=== PATIENT | male | born 1960 ===

== ENCOUNTER 2017-09-21 06:57 | Observation (INO) | payer BC ==
[2017-09-21 08:37] LABS: BASO # 0.1 K/uL (0.0-0.2); BASO % 1.3 % (0.0-2.0); EOS # 0.3 K/uL (0.0-0.7); EOS % 3.9 % (0.0-4.0); HEMATOCRIT 44.8 % (35.0-51.0); LYMPH # 2.2 K/uL (1.0-4.3); LYMPH % 27.2 % (20.0-40.0); MEAN CORPUSCULAR HEMOGLOBIN 30.4 pg (27.0-31.0); MEAN CORPUSCULAR HGB CONC 33.4 g/dL (33.0-37.0); MEAN PLATELET VOLUME 7.3 fl (7.2-11.7); MONO # 0.8 K/uL (0.0-0.8); MONO % 9.9 % (0.0-10.0); NEUT # 4.6 K/uL (1.8-7.0); NEUT % 57.7 % (50.0-75.0); NRBC % 0.1 % (0.0-0.0); RED CELL DISTRIBUTION WIDTH 14.4 % (11.5-14.5); WHITE BLOOD COUNT 7.9 K/uL (4.8-10.8)
--- NOTE | 2017-09-21 08:42 | RAD ---
PROCEDURE: Right Knee Radiographs. HISTORY: right knee pain COMPARISON: None. FINDINGS: BONES: Normal. No fracture. JOINTS: Tricompartmental narrowing with mild degenerative spurring. Tibial femoral compartment chondrocalcinosis. JOINT EFFUSION: None. OTHER FINDINGS: None. IMPRESSION: No demonstrated fracture or dislocation. Degenerative changes. Chondrocalcinosis.
[2017-09-21 08:44] LABS: PARTIAL THROMBOPLASTIN TIME 35.2 Seconds (25.6-37.1)
[2017-09-21 08:45] LABS: CALCIUM 8.7 mg/dL (8.4-10.2); CARBON DIOXIDE 25 mmol/L (22-30); CHLORIDE 108 mmol/L (98-107); GFR AFRICAN-AMERICAN > 60; GLUCOSE,RANDOM 118 mg/dL (75-110); SODIUM 137 mmol/l (132-148)
[2017-09-21 08:47] LABS: BLOOD UREA NITROGEN 28 mg/dl (9-20)
--- NOTE | 2017-09-21 08:51 | RAD ---
HISTORY: knee pain COMPARISON: No prior. TECHNIQUE: Chest PA and lateral FINDINGS: LUNGS: No active pulmonary disease. PLEURA: No significant pleural effusion identified. No pneumothorax apparent. CARDIOVASCULAR: Normal. OSSEOUS STRUCTURES: Mild degenerative changes. VISUALIZED UPPER ABDOMEN: Normal. OTHER FINDINGS: None. IMPRESSION: No active disease.
[2017-09-21 09:04] LABS: RBC URINE 1 /hpf (0-3); URINE BILIRUBIN NEGATIVE (NEGATIVE); URINE BLOOD NEGATIVE (NEGATIVE); URINE COLOR YELLOW (YELLOW); URINE GLUCOSE (UA) NEG (Normal); URINE KETONE NEGATIVE (NEGATIVE); URINE LEUKOCYTE ESTERASE NEG Leu/uL (Negative); URINE PROTEIN NEGATIVE (NEGATIVE); URINE UROBILINOGEN 0.2-1.0 mg/dL (0.2-1.0); WBC URINE < 1 /hpf (0-5)
--- NOTE | 2017-09-21 09:18 | ED PDOC ---
Lower Extremity Pain/Injury Time Seen by Provider: 09/21/17 07:27 Chief Complaint (Nursing): Lower Extremity Problem/Injury Chief Complaint (Provider): Lower extremity problem History Per: Patient History/Exam Limitations: no limitations Onset/Duration Of Symptoms: Days (x4 months), Worse Since (last few days. ) Current Symptoms Are (Timing): Still Present Pain Scale Rating Of: 4 Additional Complaint(s): Nelida Suazo is a 57 year old male, with a past medical history of arthritis, and peptic ulcer disease, who presents to the emergency department complaining of right knee pain ongoing for 4 months. Patient denies any injury but states that pain has worsen in the last few days. Last night he was unable to walk properly because his right knee locked. Patient states this was associated with severe pain. Patient was seen in the past by Dr. Jimenez for the same problem but much less severe. CT scan was done which revealed severe arthritis. He denies any fever, chills, or other medical complaints. PMD: Dr. Veliz. Past Medical History Reviewed: Historical Data, Nursing Documentation, Vital Signs Vital Signs: Last Vital Signs Temp 97.5 F L 09/21/17 08:47 Pulse 74 09/21/17 08:47 Resp 18 09/21/17 08:47 BP 130/90 09/21/17 09:04 Pulse Ox 96 09/21/17 07:15 - Medical History PMH: Arthritis, Hyperlipidemia - Family History Family History: States: Unknown Family Hx - Social History Current smoker - smoking cessation education provided: No Alcohol: None Drugs: Denies - Home Medications Home Medications: Ambulatory Orders Medication Instructions Recorded Pantoprazole Sodium [Protonix] 40 mg PO DAILY 09/21/17 Rosuvastatin Calcium [Crestor] 10 mg PO HS 09/21/17 - Allergies Allergies/Adverse Reactions: Allergies Allergy/AdvReac Type Severity Reaction Status Date / Time morphine Allergy RASH Verified 09/21/17 07:48 Review of Systems ROS Statement: Except As Marked, All Systems Reviewed And Found Negative Constitutional: Negative for: Fever, Chills Musculoskeletal: Positive for: Leg Pain (right knee ) Physical Exam - Reviewed Nursing Documentation Reviewed: Yes Vital Signs Reviewed: Yes - Physical Exam Appears: Positive for: Non-toxic, No Acute Distress Head Exam: Positive for: ATRAUMATIC, NORMAL INSPECTION, NORMOCEPHALIC Skin: Positive for: Normal Color, Warm, Dry Eye Exam: Positive for: EOMI, Normal appearance, PERRL Neck: Positive for: Normal, Painless ROM, Supple Cardiovascular/Chest: Positive for: Regular Rate, Rhythm. Negative for: Murmur Respiratory: Positive for: Normal Breath Sounds. Negative for: Respiratory Distress Gastrointestinal/Abdominal: Positive for: Normal Exam, Bowel Sounds, Soft. Negative for: Tenderness, Guarding, Rebound Back: Positive for: Normal Inspection. Negative for: L CVA Tenderness, R CVA Tenderness Extremity: Negative for: Normal ROM (limited ROM and unable to bend properly the right knee.), Deformity, Swelling Neurologic/Psych: Positive for: Alert, Oriented - Laboratory Results Result Diagrams: 09/21/17 08:31 09/21/17 08:31 - ECG O2 Sat by Pulse Oximetry: 96 (RA) Pulse Ox Interpretation: Normal Medical Decision Making Medical Decision Making: Initial Impression: intractable knee pain due to severe arthritis, meniscus injury Initial Plan: --Type and screen --EKG --BMP --CBC w/ differential --PTT --PT --Chest two views (PA/LAT) [RAD] --Knee 3 views RT [RAD] --Orthopedic consult --Urinalysis --reevaluation 0840 Knee X-Ray FINDINGS: BONES: Normal. No fracture. JOINTS: Tricompartmental narrowing with mild degenerative spurring. Tibial femoral compartment chondrocalcinosis. JOINT EFFUSION: None. OTHER FINDINGS: None. IMPRESSION: No demonstrated fracture or dislocation. Degenerative changes. Chondrocalcinosis. 0845 -Consulted Dr. Jimenez for intractable pain and sudden worsening condition of the knee joint. He recommends that pt will most likely need surgery and wants him to be admitted to hospitalist. 0849 CXR FINDINGS: LUNGS: No active pulmonary disease. PLEURA: No significant pleural effusion identified. No pneumothorax apparent. CARDIOVASCULAR: Normal. OSSEOUS STRUCTURES: Mild degenerative changes. VISUALIZED UPPER ABDOMEN: Normal. OTHER FINDINGS: None. IMPRESSION: No active disease. Scribe Attestation: Documented by Ramon Wagner, acting as a scribe for Estephanie Enamorado MD Provider Scribe Attestation: All medical record entries made by the Scribe were at my direction and personally dictated by me. I have reviewed the chart and agree that the record accurately reflects my personal performance of the history, physical exam, medical decision making, and the department course for this patient. I have also personally directed, reviewed, and agree with the discharge instructions and disposition.
--- NOTE | 2017-09-21 09:39 | CP.PCM.HP ---
<Zach Pa - Last Filed: 09/21/17 12:01> History of Present Illness - History of Present Illness History of Present Illness: Hospitalist H&P 57 year old male patient PMHx HLD, GERD seen and evaluated in ED for right knee pain of 4 mo. duration. Patient failed outpatient conservative management and treatment. Patient admits to occasional SOB on exertion, and states he has seen a machine sizer (unknown name) 3 years ago for management. Patient has had multiple remote surgeries and has tolerated anesthesia well. Patient denies any N/V/F/D/C/abd pain/palpitations. Patient to be evaluated by cardiology for surgical risk stratification. PMH: HLD, GERD PSH: Crestor, omeprazole FH: non-contributory to chief complaint SH: denies ETOH/tobacco/illicit drug use Meds: see med list All: morphine Present on Admission - Present on Admission Any Indicators Present on Admission: No Review of Systems - Constitutional Constitutional: absent: Chills, Fatigue, Fever, Headache, Malaise, Weakness - EENT Eyes: absent: Change in Vision, Diplopia, Discharge, Irritation, Pain, Photophobia Ears: absent: Tinnitus, Disequilibrium, Dizziness Nose/Mouth/Throat: absent: Epistaxis, Dental Pain, Lip Swelling, Mouth Lesions, Mouth Pain, Sore Throat, Facial Pain, Neck Pain - Cardiovascular Cardiovascular: Dyspnea on Exertion. absent: Chest Pain, Chest Pain at Rest, Chest Pain with Activity, Leg Edema, Slow Heart Rate, Syncope - Respiratory Respiratory: absent: Cough, Wheezing, Pain on Inspiration - Gastrointestinal Gastrointestinal: absent: Abdominal Pain, Cramping, Diarrhea, Dyspepsia, Dysphagia, Nausea, Temesmus, Vomiting - Genitourinary Genitourinary: absent: Dysuria, Urinary Incontinence, Urinary Frequency, Urinary Hesitance, Bladder Distension - Musculoskeletal Musculoskeletal: Arthralgias (right knee pain), Joint Swelling, Limited Range of Motion. absent: Muscle Weakness, Myalgias, Numbness, Tingling - Integumentary Integumentary: absent: Lesions, Skin Ulcer, Sores - Neurological Neurological: absent: Disequilibrium, Dizziness, Numbness, Focal Weakness, Headaches, Paresthesias - Psychiatric Psychiatric: absent: Anxiety, Confusion, Depression - Endocrine Endocrine: absent: Fatigue, Palpitations, Polydipsia, Polyphagia, Polyuria Past Patient History - Past Social History Alcohol: None Drugs: Denies - CARDIAC Hx Cardiac Disorders: Yes (high cholesterol) - MUSCULOSKELETAL/RHEUMATOLOGICAL Hx Arthritis: Yes - PSYCHIATRIC Hx Substance Use: No - SURGICAL HISTORY Hx Orthopedic Surgery: Yes (left foot, right shoulder) Meds Allergies/Adverse Reactions: Allergies Allergy/AdvReac Type Severity Reaction Status Date / Time morphine Allergy RASH Verified 09/21/17 07:48 Physical Exam - Constitutional Appears: Well, Non-toxic, No Acute Distress - Head Exam Head Exam: ATRAUMATIC, NORMAL INSPECTION, NORMOCEPHALIC - Eye Exam Eye Exam: EOMI, Normal appearance Pupil Exam: NORMAL ACCOMODATION, PERRL - ENT Exam ENT Exam: Mucous Membranes Moist, Normal Exam, Normal External Ear Exam - Neck Exam Neck exam: Positive for: Full Rom, Normal Inspection. Negative for: Tenderness - Respiratory Exam Respiratory Exam: Clear to Auscultation Bilateral, NORMAL BREATHING PATTERN. absent: Accessory Muscle Use, Rales, Rhonchi, Wheezes - Cardiovascular Exam Cardiovascular Exam: REGULAR RHYTHM, +S1, +S2. absent: Gallop, JVD, Rubs - GI/Abdominal Exam GI & Abdominal Exam: Normal Bowel Sounds, Soft. absent: Bruit, Tenderness - Rectal Exam Rectal Exam: Deferred - Extremities Exam Extremities exam: Positive for: normal capillary refill, pedal pulses present. Negative for: calf tenderness, full ROM Additional comments: Pain upon right knee ROM - Back Exam Back exam: FULL ROM, NORMAL INSPECTION. absent: CVA tenderness (L), CVA tenderness (R), tenderness, vertebral tenderness - Neurological Exam Neurological exam: Alert, Oriented x3 - Psychiatric Exam Psychiatric exam: Normal Affect, Normal Mood - Skin Skin Exam: Dry, Intact, Normal Color, Warm Results - Vital Signs Recent Vital Signs: Last Vital Signs Temp 97.5 F L 09/21/17 08:47 Pulse 74 09/21/17 08:47 Resp 18 09/21/17 08:47 BP 130/90 09/21/17 09:04 Pulse Ox 96 09/21/17 09:26 - Labs Result Diagrams: 09/21/17 08:31 09/21/17 08:31 Labs: Laboratory Results - last 24 hr 09/21/17 09/21/17 09/21/17 08:31 08:31 08:31 WBC 7.9 RBC 4.93 Hgb 15.0 Hct 44.8 MCV 91.0 MCH 30.4 MCHC 33.4 RDW 14.4 Plt Count 265 MPV 7.3 Neut % (Auto) 57.7 Lymph % (Auto) 27.2 [place] % (Auto) 9.9 Eos % (Auto) 3.9 Baso % (Auto) 1.3 Neut # 4.6 Lymph # 2.2 [place] # 0.8 Eos # 0.3 Baso # 0.1 PT 10.9 INR 1.0 APTT 35.2 Sodium 137 Potassium 5.0 Chloride 108 H Carbon Dioxide 25 Anion Gap 9 L BUN 28 H Creatinine 0.8 Est GFR ( Amer) > 60 Est GFR (Non-Af Amer) > 60 Random Glucose 118 H Calcium 8.7 Urine Color Urine Clarity Urine pH Ur Specific [place] Urine Protein Urine Glucose (UA) Urine Ketones Urine Blood Urine Nitrate Urine Bilirubin Urine Urobilinogen Ur Leukocyte Esterase Urine RBC (Auto) Urine Microscopic WBC 09/21/17 08:48 WBC RBC Hgb Hct MCV MCH MCHC RDW Plt Count MPV Neut % (Auto) Lymph % (Auto) [place] % (Auto) Eos % (Auto) Baso % (Auto) Neut # Lymph # [place] # Eos # Baso # PT INR APTT Sodium Potassium Chloride Carbon Dioxide Anion Gap BUN Creatinine Est GFR ( Amer) Est GFR (Non-Af Amer) Random Glucose Calcium Urine Color Yellow Urine Clarity Clear Urine pH 6.0 Ur Specific [place] 1.025 Urine Protein Negative Urine Glucose (UA) Neg Urine Ketones Negative Urine Blood Negative Urine Nitrate Negative Urine Bilirubin Negative Urine Urobilinogen 0.2-1.0 Ur Leukocyte Esterase Neg Urine RBC (Auto) 1 Urine Microscopic WBC < 1 Assessment & Plan (1) Osteoarthritis of right knee Status: Chronic (2) Hyperlipidemia Status: Chronic (3) GERD (gastroesophageal reflux disease) Status: Chronic (4) DVT prophylaxis Status: Acute - Assessment and Plan (Free Text) Assessment: 57 year old male patient PMHx HLD, GERD with intractable right knee pain 2/2 primary OA. Failed outpatient conservative management. (1) Osteoarthritis of right knee Status: Chronic Patient will be admitted to Med/Surg CXR/EKG/CBC/BMP/PT/PTT/INR Ortho consult - Dr. Jimenez Pain management per ortho PT/OT consult Incentive Spirometer Cardiology consulted for surgical risk stratification, recs appreciated (2) Hyperlipidemia Status: Chronic Restart home med Crestor (3) GERD (gastroesophageal reflux disease) Status: Chronic Restart home med Pantoprazole (4) DVT prophylaxis Status: Acute SCDs for now <Anca Quintanilla - Last Filed: 09/21/17 13:42> Results - Vital Signs Recent Vital Signs: Last Vital Signs Temp 97.5 F L 09/21/17 08:47 Pulse 74 09/21/17 08:47 Resp 18 09/21/17 12:48 BP 130/90 09/21/17 09:04 Pulse Ox 96 09/21/17 12:48 - Labs Result Diagrams: 09/21/17 08:31 09/21/17 08:31 Labs: Laboratory Results - last 24 hr 09/21/17 09/21/17 09/21/17 08:31 08:31 08:31 WBC 7.9 RBC 4.93 Hgb 15.0 Hct 44.8 MCV 91.0 MCH 30.4 MCHC 33.4 RDW 14.4 Plt Count 265 MPV 7.3 Neut % (Auto) 57.7 Lymph % (Auto) 27.2 [place] % (Auto) 9.9 Eos % (Auto) 3.9 Baso % (Auto) 1.3 Neut # 4.6 Lymph # 2.2 [place] # 0.8 Eos # 0.3 Baso # 0.1 PT 10.9 INR 1.0 APTT 35.2 Sodium 137 Potassium 5.0 Chloride 108 H Carbon Dioxide 25 Anion Gap 9 L BUN 28 H Creatinine 0.8 Est GFR ( Amer) > 60 Est GFR (Non-Af Amer) > 60 Random Glucose 118 H Calcium 8.7 Urine Color Urine Clarity Urine pH Ur Specific [place] Urine Protein Urine Glucose (UA) Urine Ketones Urine Blood Urine Nitrate Urine Bilirubin Urine Urobilinogen Ur Leukocyte Esterase Urine RBC (Auto) Urine Microscopic WBC 09/21/17 08:48 WBC RBC Hgb Hct MCV MCH MCHC RDW Plt Count MPV Neut % (Auto) Lymph % (Auto) [place] % (Auto) Eos % (Auto) Baso % (Auto) Neut # Lymph # [place] # Eos # Baso # PT INR APTT Sodium Potassium Chloride Carbon Dioxide Anion Gap BUN Creatinine Est GFR ( Amer) Est GFR (Non-Af Amer) Random Glucose Calcium Urine Color Yellow Urine Clarity Clear Urine pH 6.0 Ur Specific [place] 1.025 Urine Protein Negative Urine Glucose (UA) Neg Urine Ketones Negative Urine Blood Negative Urine Nitrate Negative Urine Bilirubin Negative Urine Urobilinogen 0.2-1.0 Ur Leukocyte Esterase Neg Urine RBC (Auto) 1 Urine Microscopic WBC < 1 Attending/Attestation - Attestation I have personally seen and examined this patient.: Yes I have fully participated in the care of the patient.: Yes I have reviewed all pertinent clinical information: Yes Notes (Text): 09/21/17 13:40 PATIENT SEEN EXAMINED DISCUSSED WITH RESIDENT DR. PA. AGREE WITH FINDINGS AND PLAN ABOVE. VTE PPX PER ORTHO
--- NOTE | 2017-09-21 10:42 | CARD ---
APPROVED REPORT EKG Measurement Heart [id number] ID [id number] <Conclusion> Normal sinus rhythm Normal ECG
--- NOTE | 2017-09-21 11:12 | CP.PCM.CON ---
History of Present Illness - History of Present Illness History of Present Illness: THE PATIENT IS A 57 YEAR OLD MALE WHO IS ADMITTED FOR A TOTAL RKR FOR PAIN NOT RESPONSIVE TO CONSERVATIVE MEDICAL TREATMENT FOR SEVERAL MONTHS. HE ALSO HAS A HISTORY OF HYPERLIPIDEMIA AND GERDS. CARDIOLOGY WAS ASKED TO SEE THE PATIENT BECAUSE HE HAS A HISTORY OF DYSPNEA ON EXERTION. HE STATES THAT HE SAW A [employer] ARCHITECT FOR THIS AND HAD AN ECHOCARDIOGRAM AND A NUCLEAR STRESS TEST AND EVERYTHING CAME OUT NORMAL. HE DENIES CHEST PAIN OR A HISTORY OF CAD. Past Patient History - Past Social History Alcohol: None Drugs: Denies - CARDIAC Hx Cardiac Disorders: Yes (high cholesterol) - MUSCULOSKELETAL/RHEUMATOLOGICAL Hx Arthritis: Yes - PSYCHIATRIC Hx Substance Use: No - SURGICAL HISTORY Hx Orthopedic Surgery: Yes (left foot, right shoulder) Meds Allergies/Adverse Reactions: Allergies Allergy/AdvReac Type Severity Reaction Status Date / Time morphine Allergy RASH Verified 09/21/17 07:48 Physical Exam - Respiratory Exam Respiratory Exam: Clear to Auscultation Bilateral - Cardiovascular Exam Cardiovascular Exam: REGULAR RHYTHM, +S1, +S2 - Extremities Exam Additional comments: NO LE EDEMA - Additional Findings Additional findings: EKG NSR CXR NAD Results - Vital Signs Recent Vital Signs: Last Vital Signs Temp 97.5 F L 09/21/17 08:47 Pulse 74 09/21/17 08:47 Resp 18 09/21/17 08:47 BP 130/90 09/21/17 09:04 Pulse Ox 96 09/21/17 10:14 - Labs Result Diagrams: 09/21/17 08:31 09/21/17 08:31 Labs: Laboratory Results - last 24 hr 09/21/17 09/21/17 09/21/17 08:31 08:31 08:31 WBC 7.9 RBC 4.93 Hgb 15.0 Hct 44.8 MCV 91.0 MCH 30.4 MCHC 33.4 RDW 14.4 Plt Count 265 MPV 7.3 Neut % (Auto) 57.7 Lymph % (Auto) 27.2 [place] % (Auto) 9.9 Eos % (Auto) 3.9 Baso % (Auto) 1.3 Neut # 4.6 Lymph # 2.2 [place] # 0.8 Eos # 0.3 Baso # 0.1 PT 10.9 INR 1.0 APTT 35.2 Sodium 137 Potassium 5.0 Chloride 108 H Carbon Dioxide 25 Anion Gap 9 L BUN 28 H Creatinine 0.8 Est GFR ( Amer) > 60 Est GFR (Non-Af Amer) > 60 Random Glucose 118 H Calcium 8.7 Urine Color Urine Clarity Urine pH Ur Specific [place] Urine Protein Urine Glucose (UA) Urine Ketones Urine Blood Urine Nitrate Urine Bilirubin Urine Urobilinogen Ur Leukocyte Esterase Urine RBC (Auto) Urine Microscopic WBC 09/21/17 08:48 WBC RBC Hgb Hct MCV MCH MCHC RDW Plt Count MPV Neut % (Auto) Lymph % (Auto) [place] % (Auto) Eos % (Auto) Baso % (Auto) Neut # Lymph # [place] # Eos # Baso # PT INR APTT Sodium Potassium Chloride Carbon Dioxide Anion Gap BUN Creatinine Est GFR ( Amer) Est GFR (Non-Af Amer) Random Glucose Calcium Urine Color Yellow Urine Clarity Clear Urine pH 6.0 Ur Specific [place] 1.025 Urine Protein Negative Urine Glucose (UA) Neg Urine Ketones Negative Urine Blood Negative Urine Nitrate Negative Urine Bilirubin Negative Urine Urobilinogen 0.2-1.0 Ur Leukocyte Esterase Neg Urine RBC (Auto) 1 Urine Microscopic WBC < 1 Assessment & Plan - Assessment and Plan (Free Text) Assessment: DEGENERATIVE RIGHT KNEE HYPERLIPIDEMIA STABLE CARDIAC STATUS Plan: OK TO PROCEED WITH SURGERY FROM THE CARDIAC VIEWPOINT
[2017-09-21] MEDS ORDERED: Pneumococcal 23-Valent Vaccine IM ONE (13:05)
[2017-09-21] MEDS ORDERED: MethylPREDNISolone Depo 40 mg/ml Inj ONE (14:04)
[2017-09-21] MEDS ORDERED: Lidocaine 1% Inj (20ml) ONE (14:04)
[2017-09-21] MEDS ORDERED: Bacitracin Ointment 30 GM TUBE ONE (14:04)
[2017-09-21] MEDS ORDERED: Bupivacaine 0.5% Inj(30mL) ONE (14:04)
[2017-09-21] MEDS ORDERED: Succinylcholine 200 mg/10 ml Inj IV ONE (14:34)
[2017-09-21] MEDS ORDERED: Propofol 10 mg/ml Inj (20 ML) ONE (14:34)
[2017-09-21] MEDS ORDERED: Lactated Ringer's 1,000 ML IV ONE ×2 (14:45→16:35)
[2017-09-21] MEDS ORDERED: Lidocaine 1% Inj (20ml) IJ ONE (15:28)
[2017-09-21] MEDS ORDERED: MethylPREDNISolone Depo 40 mg/ml Inj IM ONE (16:10)
[2017-09-21] MEDS ORDERED: Bupivacaine 0.5% 50 ML IJ ONE (16:10)
[2017-09-21] MEDS ORDERED: HYDROmorphone 0.5 mg/0.5 ml ISec IVP PRN (16:40)
[2017-09-21] MEDS ORDERED: Lactated Ringer's 1,000 ML IV SCH (16:45)
[2017-09-21] MEDS ORDERED: ceFAZolin IV 1 gm in Dextrose 1 GM/50 ML BAG IVPB SCH (17:00)
--- NOTE | 2017-09-21 17:09 | PCM.SURG1 ---
Surgeon's Initial Post Op Note - Surgeon's Notes Surgeon: Barbara Sales Executive Insurance: RADHAMES Kumar Type of Anesthesia: General Endo Anesthesia Administered By: DR karimi Pre-Operative Diagnosis: Locked Right knee. primary O/a R knee Operative Findings: bucket handle tear lateral meniscus. tear medial meniscus Post-Operative Diagnosis: bucket handle tear lateral meniscus. \complex tear medial meniscus. chondral eburantion medial femoral condyle/femoral trcohlea ( tricompartmental O/A R knee). tricompart,mental synovirts R knee Operation Performed: arthroscopic microfracture medial femoral condyle/femoral trochlea. arthroscopic partial tricompartmental synovectomy. arthroscopic partIAL MEDIAL /PARTAIL LATERAL meniscectomy. intraarticular injection Specimen/Specimens Removed: cartilage/synovium/bone Estimated Blood Loss: EBL {In ML}: 10 Blood Products Given: N/A Drains Used: No Drains Post-Op Condition: Good Date of Surgery/Procedure: 09/21/17 Time of Surgery/Procedure: 15:25 (time in room14:45\)
[2017-09-21 19:04] VITALS: TEMP 97.7
[2017-09-21 22:54] VITALS: O2SAT 95
[2017-09-21 22:55] VITALS: BP 118/74; PULSE 77; RESP 18
[2017-09-22] MEDS ORDERED: Pantoprazole 40 mg EC Tab PO SCH (09:00)
--- NOTE | 2017-09-23 13:15 | OP ---
PROCEDURE DATE: 09/21/2017 PREOPERATIVE DIAGNOSIS: Locked right knee/primary osteoarthritis of the right knee. POSTOPERATIVE DIAGNOSES: 1. Bucket-handle tear lateral meniscus. 2. Complex tear medial meniscus. 3. Chondral eburnation osteoarthritis, medial femoral condyle and femoral trochlea. 4. Tricompartmental synovitis, severe. OPERATIVE FINDINGS: Bucket-handle tear lateral meniscus; tear of medial meniscus, complex with fragment in the intercondylar notch; chondral damage primary osteoarthritis, medial femoral condyle, femoral trochlea; tricompartmental synovitis of the right knee. SURGEON: Lukas Jimenez MD. TERRAZZO ROLLER: Sameera Bowman, certified registered nursing assignment desk assistant. TYPE OF ANESTHESIA: General endotracheal anesthesia. ANESTHESIA ADMINISTERED BY: Darin Freitas MD. SPECIMENS REMOVED: Cartilage, synovium, and bone. ESTIMATED BLOOD LOSS: 10 mL. BLOOD PRODUCTS: None. DRAINS: None. POSTOPERATIVE CONDITION: Stable. Time in the room 1445, time of incision 1525. OPERATIVE INDICATIONS: Nelida Suazo is a 57-year-old gentleman who presents with severe pain and restricted range of motion in the knee. The patient is a [place] [employer]. The patient presents to the emergency room with a history of having had pain in the knee for over 2 months, but noted locking of the knee. The patient was unable to ambulate. The patient presented to the emergency room with severe pain and inability to ambulate with evidence of a locked knee. The patient was stabilized and taken to surgery. DESCRIPTION OF PROCEDURE: After having obtained informed consent; after thoroughly discussing the pros, cons, risks, and benefits of the surgical approach. The concept that in the future this patient in all medical probability will require knee arthroplasty was discussed. The patient again presented essentially with a locked right knee. The pros, cons, risks, and benefits of surgical arthroscopy as an emergency were discussed. The possibility of mechanical failure, infection, thromboembolic disease, secondary or tertiary surgery was discussed. The patient can no longer withstand the discomfort and wished the surgery to be accomplished. The patient was fully aware that a secondary procedure in the future may be required including but not limited to knee replacement arthroplasty, either partial or total. After having obtained informed consent in the above fashion; after the satisfactory induction of general anesthesia by Dr. Darin Freitas; after having identified side, site, procedure, and a critical pause/time-out, the right lower extremity was prepped and free draped in the usual fashion for lower extremity surgery. The tourniquet had been applied, but was not yet inflated. The knee biggs was employed. After exsanguinating the limb using a 6-inch Esmarch bandage, the tourniquet, which had been applied, was inflated to 350 mmHg. The knee biggs was employed. The joint was infiltrated with 10 mL of 1% lidocaine without epinephrine. Using #11 blade, followed by spreading, followed by introduction of a blunt trocar, the arthroscope was introduced anterolaterally. There was a severe tricompartmental synovitis noted. Triangulation was accomplished from an anteromedial portal one thumbs breadth inferior and medial to the patella using #11 blade, followed by spreading, followed by introduction of a blunt trocar. With the arthroscope anterolaterally, with the surgeon exerting a gentle valgus stress, but not so severe as to injure the medial collateral ligament, a careful partial tricompartmental synovectomy was accomplished with the arthroscopic shaver, both to improve visualization and to ablate inflammatory tissue. Bleeding points were controlled with the arthroscopic wand. With the arthroscope anterolaterally, a careful partial tricompartmental synovectomy was completed. Bleeding points again were controlled. With the surgeon exerting a gentle valgus stress, there was found to be evidence of medial meniscal tear with evidence of a fragment broken off and in the intercondylar notch. Triangulation was accomplished and a third portal was accomplished anterocentrally using #11 blade, followed by spreading, followed by introduction of a blunt trocar. Using a combination of the straight biting basket forceps and the upbiting basket forceps, a partial medial meniscectomy was accomplished. The arthroscopic shaver was employed as well. At this point in time, the arthroscopic grasper was placed with the arthroscope anterocentrally. The grasper was placed and using the arthroscopic wand, the fragment of meniscus which was medial meniscus but towards the anterior and medial aspect, was excised. This having been accomplished, the attention was turned to the remainder of the medial meniscus. This was debrided using a combination of the arthroscopic shaver, straight biting basket forceps, and side biting basket forceps. This having been accomplished, attention was turned to the lateral compartment. There was found to be evidence of bucket-handle tear of the lateral meniscus. This was grasped and brought with the arthroscope anterocentrally. The region was released and the fragment was removed from the posterior attachment. Further debridement of the lateral meniscus was accomplished with the arthroscopic shaver. The arthroscope was transferred anteromedially. Using the arthroscopic shaver, the inner lateral aspect of the lateral meniscus was excised. There was no evidence of peripheral separation. Using a combination of the straight biting basket forceps and side biting basket forceps, a partial lateral meniscectomy was completed. This having been accomplished, the inner free edge of both the medial lateral meniscus was smoothed using the arthroscopic wand. Chondroplasty was accomplished in the area of the medial femoral condyle and femoral trochlea because there was found to be arthritic change and extensive chondral damage. With the arthroscope now anterolaterally, with the knee in approximately 60 degrees of flexion, the femoral condyle was noted to the completely eburnated down to bone. With the arthroscope anterolaterally, using the arthroscopic pick, the chondral plate was violated in a honeycomb-type fashion. Microfracture having been accomplished, the wound was thoroughly irrigated. Attention was then turned to the lateral meniscus again. The inner free edge of the lateral meniscus was smoothed using the arthroscopic shaver and again the Dat SERFAS wand. Partial tricompartmental synovectomy was completed. Bleeding points were controlled with the arthroscopic wand. Closures in layers with interrupted Vicryl and nylon. Intra-articular injection was offered with Marcaine, Duramorph, and Depo-Medrol. Eron Patino compression dressing and knee immobilizer was applied. The patient is stable in recovery. Lukas Jimenez MD
== END 2017-09-21 20:35 | disposition home or self-care (01) ==
LOC: H.ER 06:57 → H.ERHOLD 08:28 → H.MEDSURG1 10:28
PROVIDERS: ADMIT Student in an Organized Health Care Education/Training Program; ATTEND Student in an Organized Health Care Education/Training Program
DX: M17.11 Unilateral primary osteoarthritis, right knee (principal); E78.5 Hyperlipidemia, unspecified; K21.9 Gastro-esophageal reflux disease without esophagitis; Z87.11 Personal history of peptic ulcer disease; Z23 Encounter for immunization; Z88.5 Allergy status to narcotic agent; S83.251A Bucket-handle tear of lateral meniscus, current injury, right knee, initial encounter; S83.231A Complex tear of medial meniscus, current injury, right knee, initial encounter; X58.XXXA Exposure to other specified factors, initial encounter; M65.9 Synovitis and tenosynovitis, unspecified; M11.261 Other chondrocalcinosis, right knee
CPT/HCPCS: 29879; 29880; 71020; 73562; 80048; 81003; 85025; 85610; 85730; 86850; 86900; 88305; 90732; 93005; 99283; G0009; G0378; J0171; J0690; J1030; J1170; J1885; J2001; J2405; J2704; J3010; J7030; J7120